=== PATIENT | male | born 1965 | race Hispanic/Latino ===

== ENCOUNTER 2017-11-16 18:16 | Inpatient (IN) | payer MEDICARE ==
[2017-11-16 18:29] VITALS: BMI 32.8
--- NOTE | 2017-11-16 18:30 | C.PDOC ---
History Of Present Illness 52 y/o male brought to ED by EMS sent From [place] to be admitted to Dr. Adler for depression and suicidal ideation with plan. Patient stated "he was going to take a bunch of pills and drink alcohol" to attempt suicide. Patient states he is from and lives with mother, currently under a lot of stress. Patient states the medication he is on "is not right". Patient has a long history of psychiatric problems and has been an inpatient psych facilities for evaluation. No physical complaints at this time. Time Seen by Provider: 11/16/17 18:20 Chief Complaint (Nursing): Psychiatric Evaluation History Per: Patient History/Exam Limitations: no limitations Onset/Duration Of Symptoms: Hrs, Waxing/Waning Suicide/Self Injury Attempted (Context): None Modifying Factor(s): None Associated Symptoms: Depression, Suicidal Thoughts, Suicidal Plan Past Medical History Reviewed: Historical Data, Nursing Documentation, Vital Signs Vital Signs: Last Vital Signs Temp 97.3 F L 11/16/17 18:24 Pulse 77 11/16/17 18:24 Resp 18 11/16/17 18:24 BP 138/94 H 11/16/17 18:24 Pulse Ox 100 11/16/17 18:32 - Medical History PMH: No Chronic Diseases Surgical History: No Surg Hx Family History: States: No Known Family Hx Review Of Systems Constitutional: Negative for: Fever, Chills Cardiovascular: Negative for: Chest Pain Gastrointestinal: Negative for: Nausea, Vomiting Skin: Negative for: Rash Neurological: Negative for: Weakness, Numbness Psych: Positive for: Depression, Suicidal ideation. Negative for: Anxiety Physical Exam - Physical Exam Appears: Non-toxic, No Acute Distress Skin: Warm, Dry, No Rash Head: Atraumatic, Normacephalic Oral Mucosa: Moist Neck: Normal ROM, Supple Cardiovascular: Rhythm Regular Respiratory: Normal Breath Sounds, No Rales, No Rhonchi, No Wheezing Gastrointestinal/Abdominal: Soft, No Tenderness, No Guarding, No Rebound Extremity: Normal ROM, Capillary Refill (<2 seconds) Neurological/Psych: Oriented x3 Gait: Steady ED Course And Treatment O2 Sat by Pulse Oximetry: 100 (RA) Pulse Ox Interpretation: Normal Disposition - Disposition Disposition: HOSPITALIZED Disposition Time: 18:37 Condition: STABLE - POA Present On Arrival: None - Clinical Impression Clinical Impression: Bipolar disorder with depression - Scribe Statement The provider has reviewed the documentation as recorded by the Silvioibjosep Leggett All medical record entries made by the Mulu were at my direction and personally dictated by me. I have reviewed the chart and agree that the record accurately reflects my personal performance of the history, physical exam, medical decision making, and the department course for this patient. I have also personally directed, reviewed, and agree with the discharge instructions and disposition.
[2017-11-16 18:32] VITALS: O2SAT 100
--- NOTE | 2017-11-16 19:29 | PCM.BM ---
<Felix López - Last Filed: 11/16/17 19:26> Treatment Plan Problems - Problems identified on initial assessmt Depression Date Initiated: 11/16/17 Time Initiated: 19:15 Assessment reference: NA Status: Active Substance Abuse Date Initiated: 11/16/17 Time Initiated: 19:15 Assessment reference: NA Status: Active Treatment assets and liabiliti Patient Assests: cooperative, educated, ADL independent, physically healthy, negotiates basic needs Patient Liabilities: live alone (Homeless), financial problems (Unemployed), poor support system (Recently ), substance abuse (Cocaine), medical problems (Cardiac stent), legal issue ([place] on House arrest), visual impairment (Uses glasses) - Milieu Protocol Maintain good personal hygiene: daily Encourage regular showers, every shift Remind patient to perform daily oral care, every shift Assist patient to perform ADL's Conduct patient checks and document Observation sheet: Q15 minutes (For Safety) Maintain personal safety: every shift Educate patient to report safety concerns to staff, every shift Monitor environment for contraband/sharps Medication safety: Monitor for expected outcome, potential side effects: every shift, Assess barriers to learning: every shift, Assess readiness for medication education: every shift <Lucia Montenegro - Last Filed: 11/18/17 11:02> Family Contact Family involvement: Blaire/SO not involved - Goals for Treatment Patient goals for treatment: "I need an outpatient program." Discharge/Continuing Care - Education Needs Education Needs: Patient Medication, Patient Coping Skills, Patient Community resources - Discharge Discharge Criteria: Tolerates medication w/o severe side effects, Reduction of target symptoms Discharge to:: Home - Treatment Team Participation Discussed with Family/SO: No Was Patient/Family/SO present at Treatment Team Meeting: Yes
--- NOTE | 2017-11-17 10:26 | PCM.PSYCH ---
Initial Psychiatric Evaluation - Initial Psychiatric Evaluation Type of Admission: Voluntary Legal Status: Capacity Chief Complaint (in patient's own words): I was feeling depressed and suicidal.' History of Present Illness and Precipitating Events: This is a 52-year-old CM, who was transferred from [facility], due to depressed mood and suicidal ideation with plan to overdose on pills. Patient reports that he just got almost 5 months ago, after companionship of 35 years. He reports that he tried to approach his ex- but she put a restraining order against him. When he approached again, he violated the restraining order, he was incarcerated and he was put on a bracelet. As per the patient he became increasingly depressed since then. Yesterday he became increasingly sad and overwhelmed because of financial and social issues. He developed feelings of hopelessness and helplessness, and developed suicidal ideation with plan to overdose on pills, so he went to the hospital to get help. Patient reports history of drinking in the past. However his last drink was almost 2 years ago. He reports history of abusing cocaine, last abuse was 3 weeks ago. He denies any irritable and agitated behavior and denies any auditory or visual hallucinations or any persecutory delusions. He denies any recent substance abuse. Past Medical history HTN, CAD s/p Stents Current Medications: Active Medications Generic Name Dose Route Start Last Admin Trade Name Freq PRN Reason Stop Dose Admin Aspirin 81 mg 11/17/17 10:00 Ecotrin PO DAILY SHAE Carvedilol 3.125 mg 11/17/17 10:00 Coreg PO DAILY SHAE Clonazepam 0.5 mg 11/17/17 10:00 Klonopin PO BID SHAE Clonidine HCl 0.1 mg 11/17/17 10:00 Catapres PO BID SHAE Clopidogrel Bisulfate 75 mg 11/17/17 10:00 Plavix PO DAILY SHAE Enalapril Maleate 10 mg 11/17/17 10:00 Vasotec PO DAILY SHAE Hydroxyzine HCl 25 mg 11/16/17 21:48 Atarax PO Q6 PRN Anxiety Nicotine 1 patch 11/17/17 10:00 11/16/17 18:39 Nicoderm Cq TD 1 patch DAILY SHAE Administration Propranolol HCl 20 mg 11/17/17 10:00 Inderal PO DAILY SHAE Rosuvastatin Calcium 10 mg 11/16/17 22:00 11/16/17 22:07 Crestor PO 10 mg HS SHAE Administration Sertraline HCl 50 mg 11/17/17 10:00 Zoloft PO DAILY SHAE Trazodone HCl 50 mg 11/16/17 21:48 11/16/17 22:07 Desyrel PO 50 mg HS PRN Administration Insomnia Past Psychiatric History - Past Psychiatric History Previous Treatment History: Inpatient Pertinent Medical Hx (Current Medical&Sleep Prob, Allergies): Allergies Allergy/AdvReac Type Severity Reaction Status Date / Time No Known Allergies Allergy Verified 11/16/17 18:23 Aspirin [Aspirin Chewable] 81 mg PO DAILY 11/16/17 Carvedilol [Coreg] 3.125 mg PO DAILY 11/16/17 Clopidogrel [Plavix] 75 mg PO DAILY 11/16/17 Lurasidone HCl [Latuda] 20 mg PO HS 11/16/17 Propranolol 1 tab PO DAILY 11/16/17 Ramipril [Altace] 5 mg PO DAILY 11/16/17 Simvastatin 20 mg PO HS 11/16/17 cloNIDine [clonidine HCl] 0.1 mg PO BID 11/16/17 clonazePAM [clonAZEPAM] 0.5 mg PO BID 11/16/17 Review of Systems - Review of Systems All systems: reviewed and no additional remarkable complaints except - Psychiatric Psychiatric: Anxiety, Irritability, Suicidal Ideation Mental Status Examination - Personal Presentation Personal Presentation: Looks stated age - Affect Affect: Constricted, Depressed - Motor Activity Motor Activity: Calm - Reliability in Providing Information Reliability in Providing Information: Good - Speech Speech: Organized - Mood Mood: Depressed, Anxious - Formal Thought Process Formal Thought Process: No Impairment - Obsessions/Compulsions Obsessions: No Compulsions: No - Cognitive Functions Orientation: Person, Place, Situation, Time Sensorium: Alert Attention/Concentration: Attentive Abstract Thinking: [place] Estimate of Intelligence: Below average Judgement: Imparied, as evidence by: Poor judgement, Imparied, as evidence by: Lack of insight into illness - Risk Risk: Suicidal, Diminished functioning - Limitations Limitations: Living alone DSM 5 DX - DSM 5 DSM 5 Diagnosis: Major depressive disorder recurrent severe without psychotic features Cocaine use disorder moderate 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 - Recommended/Plan of Treatment Treatment Recommendations and Plan of Treatment: Major depressive disorder recurrent severe without psychotic features CBT Psychoeducation Supportive therapy, group therapy, individual therapy Zoloft 50 mg by mouth daily Trazodone 50 mg by mouth daily at bedtime Cocaine use disorder moderate Monitor signs and symptoms Use RI for abstinence 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
--- NOTE | 2017-11-18 11:04 | PCM.PYCHPN ---
Psychiatric Progress Note - Psychiatric Progress Note Patient Chief Complaint: I was feeling depressed and suicidal.' Medication Change: Yes (increase Zoloft, increase trazodone) Medical Record Reviewed: Yes Mental Status Examination - Cognitive Function Orientation: Person, Place, Situation, Time - Mood Mood: Depressed, Anxious - Affect Affect: Constricted, Depressed - Formal Thought Process Formal Thought Process: No Impairment Goal/Treatment Plan - Goal/Treatment Plan Progress Toward Problem(s) and Goals/Treatment Plan: Major depressive disorder recurrent severe without psychotic features CBT Psychoeducation Supportive therapy, group therapy, individual therapy Zoloft 50 mg by mouth daily Trazodone 50 mg by mouth daily at bedtime Cocaine use disorder moderate Monitor signs and symptoms Use SC for abstinence 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
--- NOTE | 2017-11-19 11:43 | PCM.PYCHPN ---
Psychiatric Progress Note - Psychiatric Progress Note Patient Chief Complaint: I was feeling depressed and suicidal.' Medication Change: Yes (increase Zoloft, start neurontin) Medical Record Reviewed: Yes Mental Status Examination - Cognitive Function Orientation: Person, Place, Situation, Time - Mood Mood: Depressed, Anxious - Affect Affect: Constricted, Depressed - Formal Thought Process Formal Thought Process: No Impairment Goal/Treatment Plan - Goal/Treatment Plan Progress Toward Problem(s) and Goals/Treatment Plan: Major depressive disorder recurrent severe without psychotic features CBT Psychoeducation Supportive therapy, group therapy, individual therapy Zoloft 50 mg by mouth daily Trazodone 50 mg by mouth daily at bedtime Cocaine use disorder moderate Monitor signs and symptoms Use ID for abstinence 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
--- NOTE | 2017-11-20 13:35 | PCM.PYCHPN ---
Psychiatric Progress Note - Psychiatric Progress Note Patient Chief Complaint: I was feeling depressed and suicidal.' Medication Change: Yes (increase Zoloft, start neurontin) Medical Record Reviewed: Yes Mental Status Examination - Cognitive Function Orientation: Person, Place, Situation, Time - Mood Mood: Depressed, Anxious - Affect Affect: Constricted, Depressed - Formal Thought Process Formal Thought Process: No Impairment Goal/Treatment Plan - Goal/Treatment Plan Progress Toward Problem(s) and Goals/Treatment Plan: Major depressive disorder recurrent severe without psychotic features CBT Psychoeducation Supportive therapy, group therapy, individual therapy Zoloft 50 mg by mouth daily Trazodone 50 mg by mouth daily at bedtime Cocaine use disorder moderate Monitor signs and symptoms Use OK for abstinence 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
--- NOTE | 2017-11-21 10:40 | PCM.PYCHPN ---
Psychiatric Progress Note - Psychiatric Progress Note Patient seen today, length of contact: 15 min Patient Chief Complaint: I am feeling much better' Problems Identified/Issues Discussed: Patient seen and evaluated, chart reviewed and discussed with the nurse. Patient reports some improvement in his mood and reports some improvement in the feelings of hopelessness. He also reports improvement in his sleep. As per the staff is still pacing back and forth in the hallways. He denies any auditory or visual hallucinations or any psychosis. Patient is compliant with medications and denies any side effects. Symptoms are improving but need more time to stabilize. Support and psychoeducation given. Medication Change: No (increase Zoloft, start neurontin) Medical Record Reviewed: Yes Mental Status Examination - Cognitive Function Orientation: Person, Place, Situation, Time Memory: Intact Attention: WNL Concentration: Poor Association: WNL Fund of Knowledge: Poor - Mood Mood: Depressed, Anxious - Affect Affect: Constricted, Depressed - Speech Speech: Soft - Formal Thought Process Formal Thought Process: No Impairment - Suicidal Ideation Suicidal Ideation: No - Homicidal Ideation Homicidal Ideation: No Goal/Treatment Plan - Goal/Treatment Plan Need for Continued Stay: Severe depression anxiety, Severe functional impairment Progress Toward Problem(s) and Goals/Treatment Plan: Major depressive disorder recurrent severe without psychotic features CBT Psychoeducation Supportive therapy, group therapy, individual therapy Zoloft 100 mg by mouth daily Trazodone 100 mg by mouth daily at bedtime Neurontin 300 mg by mouth twice a day Cocaine use disorder moderate Monitor signs and symptoms Use VT for abstinence 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
[2017-11-22 07:02] VITALS: PULSE 89; RESP 16; TEMP 97.6
[2017-11-22 09:47] VITALS: BP 127/84
--- NOTE | 2017-11-22 09:54 | PCM.PYCHDC ---
Mental Status Examination - Mental Status Examination Orientation: Person, Place, Situation, Time Memory: Intact Mood: Neutral Affect: Constricted Speech: Soft Attention: WNL Concentration: WNL Association: WNL Fund of Knowledge: WNL Formal Thought Process: No Impairment Description of patient's judgement and insight: good, fair Psychotic Thoughts and Behaviors: denies any AVH Suicidal Ideation: No Current Homicidal Ideation?: No Discharge Summary - Discharge Note Reason for Hospitalization: This is a 52-year-old CM, who was transferred from [facility], due to depressed mood and suicidal ideation with plan to overdose on pills. Patient reports that he just got almost 5 months ago, after companionship of 35 years. He reports that he tried to approach his ex- but she put a restraining order against him. When he approached again, he violated the restraining order, he was incarcerated and he was put on a bracelet. As per the patient he became increasingly depressed since then. Yesterday he became increasingly sad and overwhelmed because of financial and social issues. He developed feelings of hopelessness and helplessness, and developed suicidal ideation with plan to overdose on pills, so he went to the hospital to get help. Patient reports history of drinking in the past. However his last drink was almost 2 years ago. He reports history of abusing cocaine, last abuse was 3 weeks ago. He denies any irritable and agitated behavior and denies any auditory or visual hallucinations or any persecutory delusions. He denies any recent substance abuse. Consultations:: List each consultation separately and include: 1. Reason for request. 2. Findings. 3. Follow-up Summary of Hospital Course include:: 1. Description of specific treatment plan utilized for patients during their course of treatmen. 2. Summarize the time- course for resolution of acute symptoms and/or regressed behaviors. 3. Describe issues identified and worked on during hospitalization. 4. Describe medication utilized. 5. Describe medical problems identified and treated. 6. Reassessment of suicide risk Summary of Hospital Course: During the course of his stay, patient (pt) started progressively improving and he no longer remained irritable, depressed, and suicidal. His mood and anxiety symptoms were improved and he started attending groups and meetings and started socializing. Patient denied any feelings of hopelessness, helplessness, and worthlessness, denied any problem with the sleep or appetite, denied suicidal ideation or homicidal ideation. Pt denied any auditory or visual hallucinations. Some changes were made in his current medications and patient was discharged on following medications. He tolerated these medications very well and denied any side effects. Pt is to follow-up with [facility] outpatient program for treatment. also provided pt with resource for Divorce support groups as requested by pt. 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 Pt was educated and counseled about the risks of drinking and abusing drugs. Pt was educated and counseled to go to the ER or call 911 if pt develop suicidal ideation or homicidal ideation, worsening of symptoms or severe side effects of the meds. Prescriptions/Medication Reconciliation: Gabapentin [Neurontin] 300 mg PO BID #60 cap Sertraline [Zoloft] 100 mg PO DAILY #30 tab traZODone [Desyrel] 100 mg PO HS PRN #30 tab PRN Reason: Insomnia - Smoking Cessation Smoking Cessation Medication prescribed: No - Antipsychotic Medications Pt discharged on 2 or more routine antipsychotic medications: No
== END 2017-11-22 11:21 | disposition home or self-care (01) | DRG 885 ==
LOC: C.ER 18:16 → C.5E 18:28
PROVIDERS: ADMIT Psychiatry & Neurology Psychiatry; ATTEND Psychiatry & Neurology Psychiatry
PROC: GZHZZZZ Group Psychotherapy (ICD-10-PCS; principal; 2017-11-16)
PROC: GZ58ZZZ Individual Psychotherapy, Cognitive-Behavioral (ICD-10-PCS; 2017-11-16)
PROC: GZ56ZZZ Individual Psychotherapy, Supportive (ICD-10-PCS; 2017-11-16)
DX: F33.2 Major depressive disorder, recurrent severe without psychotic features (principal); F14.20 Cocaine dependence, uncomplicated; R45.851 Suicidal ideations; F10.21 Alcohol dependence, in remission; I10 Essential (primary) hypertension; I25.10 Atherosclerotic heart disease of native coronary artery without angina pectoris; Z79.899 Other long term (current) drug therapy; Z95.5 Presence of coronary angioplasty implant and graft